=== PATIENT | female | born 1940 | race Caucasian/White ===

== ENCOUNTER 2018-06-19 12:05 | Emergency (ER) | payer MEDICARE ==
[~2018-06-19] VITALS: Ht 160 cm; Wt 72.7 kg
[2018-06-19 12:26] VITALS: BP 163/102
[2018-06-19] MEDS ORDERED: KETOROLAC TROMETHAMINE 60 MG/2 ML VIAL IM ONE (15:30)
== END 2018-06-19 16:10 | disposition home or self-care (01) ==
LOC: EMS 12:10
DX: K61.1 Rectal abscess (principal); R03.0 Elevated blood-pressure reading, without diagnosis of hypertension
CPT/HCPCS: 96372; 99283; J1885